=== PATIENT | male | born 1945 | race Caucasian/White ===

== ENCOUNTER 2022-12-19 11:29 | Emergency (ER) | payer OTHER ==
[2022-12-19 11:49] VITALS: RESP 16; TEMP 98.5; BMI 20.9
[2022-12-19 12:27] LABS: HEMATOCRIT 43.6 % (35.4-49); HEMOGLOBIN 14.6 G/dL (11.7-16.9); MCH 30.6 pg (25.7-33.7); MCHC 33.4 g/dl (32.0-35.9); MEAN CELL VOLUME 91.6 fl (80-96); MEAN PLT VOLUME 8.6 fl (7.5-11.1); RBC 4.76 10^6/uL (4.00-5.60); RDW 14.5 % (11.9-15.9)
[2022-12-19 12:50] LABS: INR 0.99 (0.83-1.09); PROTHROMBIN TIME (PATIENT) 11.5 SEC (9.7-13.0)
[2022-12-19 12:53] LABS: ACTIVATED PTT 31.2 SECONDS (25.2-36.5)
[2022-12-19 12:54] LABS: ALBUMIN 4.1 g/dl (3.4-5.0); BILIRUBIN,TOTAL 0.7 mg/dl (0.2-1); CALCIUM 9.3 mg/dl (8.5-10.1); CREATININE 0.9 mg/dl (0.6-1.3); POTASSIUM 4.1 mmol/L (3.5-5.1); TOT PROT 6.2 g/dl (6.4-8.2)
[2022-12-19 14:03] LABS: PLATELET ESTIMATE ADEQUATE
[2022-12-19 14:03] LABS: N-TERMINAL BNP 111.5 pg/ml (5-450)
[2022-12-19 14:36] VITALS: BP 151/79; PULSE 67
== END 2022-12-19 16:16 | disposition home or self-care (01) ==
LOC: FER 11:29
DX: R07.9 Chest pain, unspecified (principal)
CPT/HCPCS: 36415; 71046-TC-FY; 80053; 83880; 84484; 85027; 85610; 85730; 93005; 99285-25